=== PATIENT | female | born 1965 | race American Indian/Alaskan Native ===

== ENCOUNTER 2017-04-27 14:59 | Emergency (ER) | payer MEDICAID ==
[2017-04-27 15:30] VITALS: BP 134/86
== END 2017-04-27 16:37 | disposition left against medical advice (07) ==
LOC: ED 14:59
DX: R07.9 Chest pain, unspecified (principal); R06.02 Shortness of breath; R05 Cough; J45.909 Unspecified asthma, uncomplicated; I10 Essential (primary) hypertension; Z72.0 Tobacco use; Z53.21 Procedure and treatment not carried out due to patient leaving prior to being seen by health care provider
CPT/HCPCS: 93005; 93010

== ENCOUNTER 2017-08-06 07:15 | Emergency (ER) | payer OTHER, MEDICAID ==
[2017-08-06 07:26] VITALS: BP 102/64
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
--- NOTE | 2017-08-06 08:43 | XRay Report ---
ROUTINE CHEST, TWO VIEWS: Cough PA and lateral views demonstrate the heart and mediastinal contour to be of normal size and shape. The lungs are clear and fully expanded and the soft tissues and bony structures are normal. No obvious change compared to November 2012. IMPRESSION: Normal study. Right shoulder: Pain. There is a small inferior spur on the humerus head. The shoulder joint appears aligned and the joint spaces preserved. The articular surfaces are smooth. There appears to be an nonunited apophysis at the distal clavicle. No soft tissue findings. Impression: Humerus head spur. AP AND LATERAL CERVICAL SPINE: Neck pain. The vertebral bodies are well mineralized and normal in alignment and vertebral height with well preserved interspace distances. The visualized portions of the posterior elements are normal. IMPRESSION: Normal study.
== END 2017-08-06 09:15 | disposition home or self-care (01) ==
LOC: ED 07:15
DX: J44.1 Chronic obstructive pulmonary disease with (acute) exacerbation (principal); S46.911A Strain of unspecified muscle, fascia and tendon at shoulder and upper arm level, right arm, initial encounter; S16.1XXA Strain of muscle, fascia and tendon at neck level, initial encounter; I10 Essential (primary) hypertension; F17.210 Nicotine dependence, cigarettes, uncomplicated; V89.2XXA Person injured in unspecified motor-vehicle accident, traffic, initial encounter; Y93.89 Activity, other specified; Y92.89 Other specified places as the place of occurrence of the external cause; Y99.8 Other external cause status
CPT/HCPCS: 71020; 72040; 99283

== ENCOUNTER 2022-03-23 14:41 | Emergency (ER) | payer MEDICAID ==
[2022-03-23 16:33] LABS: Basophils # (Auto) 0.1 K/mm3 (0.0-0.1); Basophils % (Auto) 0.7 % (0.0-1.8); Eosinophils % (Auto) 0.2 % (0.0-4.3); Hematocrit 38.3 % (30.3-42.9); Hemoglobin 12.6 gm/dl (10.1-14.3); Lymphocytes # (Auto) 2.2 K/mm3 (1.2-5.4); Lymphocytes % (Auto) 27.9 % (13.4-35.0); Mean Corpuscular HGB Conc 33 % (30-34); Mean Corpuscular Volume 82 fl (79-97); Monocytes # (Auto) 0.4 K/mm3 (0.0-0.8); Monocytes % (Auto) 4.7 % (0.0-7.3); Platelet Count 229 K/mm3 (140-440); Red Blood Count 4.66 M/mm3 (3.65-5.03); Red Cell Distribution Width 16.6 % (13.2-15.2)
[2022-03-23 16:54] LABS: BUN/Creatinine Ratio 9; Blood Urea Nitrogen 7 mg/dL (7-17); Calcium 9.3 mg/dL (8.4-10.2); Hemolysis Index 6
--- NOTE | 2022-03-23 20:36 | Emergency Department Report ---
ED Psych HPI - General Chief Complaint: Psych Stated Complaint: SI Time Seen by Provider: 03/23/22 15:18 Source: patient Mode of arrival: Ambulatory Limitations: No Limitations - History of Present Illness Initial Comments: Patient is a 56-year-old female presenting to ED with complaint of suicidal ideations as well as homicidal ideations. Patient states she began experiencing suicidal ideations yesterday. States she also has thoughts of killing her . She denies any past history of self injury. - Related Data Home Medications Medication Instructions Recorded Confirmed Last Taken Loratadine (Nf) [Claritin] 10 mg PO DAILY 04/09/15 04/09/15 Unknown Zolpidem Tartrate [Ambien] 10 mg PO QHS 04/09/15 04/09/15 1 Day Ago ~04/08/15 Previous Rx's Medication Instructions Recorded Last Taken Type ALBUTEROL NEB's [Proventil 0.083% 2.5 mg IH Q4HR PRN #30 neb 11/30/14 Unknown Rx NEBS] Albuterol Sulfate [Ventolin HFA] 2 puff IH Q4H PRN #1 hfa.aer.ad 08/06/17 Unknown Rx Benzonatate [Tessalon Perles] 100 mg PO Q8HR #21 capsule 08/06/17 Unknown Rx Ibuprofen [Motrin] 800 mg PO Q8HR PRN #20 tablet 08/06/17 Unknown Rx Prednisone [predniSONE 10 mg 10 mg PO .TAPER #1 tab.ds.pk 08/06/17 Unknown Rx (6-Day Pack, 21 Tabs)] Sulfamethoxazole/Trimethoprim 1 each PO BID #20 tablet 08/06/17 Unknown Rx [Bactrim DS TAB] Allergies Allergy/AdvReac Type Severity Reaction Status Date / Time No Known Allergies Allergy Verified 03/23/22 15:35 ED Review of Systems ROS: Stated complaint: SI Other details as noted in HPI Comment: All other systems reviewed and negative Constitutional: denies: chills, fever Respiratory: denies: cough, shortness of breath, wheezing Cardiovascular: denies: chest pain, palpitations Gastrointestinal: denies: abdominal pain, nausea, diarrhea Musculoskeletal: denies: back pain, joint swelling, arthralgia Skin: denies: rash, lesions Neurological: denies: headache, weakness, paresthesias Psychiatric: homicidal thoughts, suicidal thoughts ED Past Medical Hx - Past Medical History Hx Hypertension: Yes Hx Asthma: Yes - Social History Smoking Status: Current Every Day Smoker Substance Use Type: None - Medications Home Medications: Home Medications Medication Instructions Recorded Confirmed Last Taken Type ALBUTEROL NEB's [Proventil 0.083% 2.5 mg IH Q4HR PRN #30 neb 11/30/14 04/09/15 Unknown Rx NEBS] Loratadine (Nf) [Claritin] 10 mg PO DAILY 04/09/15 04/09/15 Unknown History Zolpidem Tartrate [Ambien] 10 mg PO QHS 04/09/15 04/09/15 1 Day Ago History ~04/08/15 Albuterol Sulfate [Ventolin HFA] 2 puff IH Q4H PRN #1 hfa.aer.ad 08/06/17 Unknown Rx Benzonatate [Tessalon Perles] 100 mg PO Q8HR #21 capsule 08/06/17 Unknown Rx Ibuprofen [Motrin] 800 mg PO Q8HR PRN #20 tablet 08/06/17 Unknown Rx Prednisone [predniSONE 10 mg 10 mg PO .TAPER #1 tab.ds.pk 08/06/17 Unknown Rx (6-Day Pack, 21 Tabs)] Sulfamethoxazole/Trimethoprim 1 each PO BID #20 tablet 08/06/17 Unknown Rx [Bactrim DS TAB] ED Physical Exam - General Limitations: No Limitations General appearance: alert, in no apparent distress - Head Head exam: Present: atraumatic, normocephalic - Neck Neck exam: Present: normal inspection - Respiratory Respiratory exam: Present: normal lung sounds bilaterally. Absent: respiratory distress - Cardiovascular Cardiovascular Exam: Present: regular rate, normal rhythm. Absent: systolic murmur, diastolic murmur, rubs, gallop - GI/Abdominal GI/Abdominal exam: Present: soft, normal bowel sounds. Absent: distended, tenderness - Neurological Exam Neurological exam: Present: alert, oriented X3 - Psychiatric Psychiatric exam: Present: homicidal ideation, suicidal ideation - Skin Skin exam: Present: warm, dry, intact, normal color ED Course Vital Signs 03/23/22 14:46 Temperature 98.4 F Pulse Rate 110 H Respiratory 16 Rate Blood Pressure 119/77 [Left] O2 Sat by Pulse 96 Oximetry ED Medical Decision Making - Lab Data Result diagrams: 03/23/22 16:24 03/23/22 16:24 - Medical Decision Making Labs reviewed and are grossly unremarkable. Patient medically cleared. 1013 signed. Patient awaiting evaluation by mental health. Critical care attestation.: If time is entered above; I have spent that time in minutes in the direct care of this critically ill patient, excluding procedure time. ED Disposition Clinical Impression: Suicidal ideation, Homicidal ideation Disposition: 30 STILL A PATIENT Is pt being admited?: No Condition: Stable
--- NOTE | 2022-03-24 11:42 | Consultation ---
History of Present Illness - Reason for Consult Consult date: 03/24/22 Reason for consult: SI/HI - History of Present Psychiatric Illness HPI: Patient is a 56-year-old female presenting to ED with complaint of suicidal ideations as well as homicidal ideations. Patient states she began experiencing suicidal ideations yesterday. States she also has thoughts of killing her . She denies any past history of self injury. The patient was seen today. She is guarded, and seems a little irritable. She says her is stressing her out. The patient also verbalizes using cocaine. 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 The patient says she takes zoloft for bipolar, depression and schizophrenia. She says "sometimes" when asking if she takes it. The patient denies feeling like she wants to hurt herself or others. She denies hallucinations. Nurse note states the patient stated she wanted to kill herself, and granddaughter. Will recommend inpatient treatment to get the patient stabilized on medications. PAST PSYCHIATRIC HISTORY: Diagnoses: Bipolar, schizophrenia Suicide attempts or Self-harm behavior: Denies Prior psychiatric hospitalizations: Yes Substance Abuse history: Cocaine Previous psychiatric medications tried: Zoloft Outpatient treatment: yes PAST MEDICAL HISTORY: none reported Family Psychiatric History: None reported or documented SOCIAL HISTORY Marital Status: Living Arrangements: Lives with Employment Status: Unemployed Access to guns/weapons: Denies Education: 12th grade History of Abuse:Denies Legal History: Denies REVIEW OF SYSTEMS Constitutional: Negative for weight loss ENT: Negative for stridor Respiratory: Negative for cough or hemoptysis All other systems reviewed and are negative MENTAL STATUS EXAMINATION General Appearance and Behavior: Age appropriate, wearing appropriate clothes, cooperative, polite with questioning, good eye contact Cooperation: cooperative, irritable, guarded Psychomotor Behavior: Psychomotor normal Mood: Depressed Affect and affective range: congruent with stated mood Thought Process: Goal directed Thought Content: Reality oriented Speech: Normal volume, Regular rate and rhythm Suicidal Ideation: Denies Homicidal Ideation: Denies Hallucination: Denies Delusions: None elicited Impulse Control: Limited Insight and Judgment: Limited Memory: limited Attention: attentive Orientation: Alert and oriented Diagnoses: Bipolar disorder Treatment Plan [address] 125mg po BID Start Abilify 5mg po daily Start Doxepin 10mg po qhs Sitter: per primary Medical: Per primary Disposition: Recommend acute psychiatric inpatient treatment Will follow. Thanks Case staffed with Dr. Grajeda Medications and Allergies Allergies Allergy/AdvReac Type Severity Reaction Status Date / Time No Known Allergies Allergy Verified 03/23/22 15:35 Home Medications Medication Instructions Recorded Confirmed Last Taken Type ALBUTEROL NEB's [Proventil 0.083% 2.5 mg IH Q4HR PRN #30 neb 11/30/14 04/09/15 Unknown Rx NEBS] Loratadine (Nf) [Claritin] 10 mg PO DAILY 04/09/15 04/09/15 Unknown History Zolpidem Tartrate [Ambien] 10 mg PO QHS 04/09/15 04/09/15 1 Day Ago History ~04/08/15 Albuterol Sulfate [Ventolin HFA] 2 puff IH Q4H PRN #1 hfa.aer.ad 08/06/17 Unk nown Rx Benzonatate [Tessalon Perles] 100 mg PO Q8HR #21 capsule 08/06/17 Unknown Rx Ibuprofen [Motrin] 800 mg PO Q8HR PRN #20 tablet 08/06/17 Unknown Rx Prednisone [predniSONE 10 mg 10 mg PO .TAPER #1 tab.ds.pk 08/06/17 Unknown Rx (6-Day Pack, 21 Tabs)] Sulfamethoxazole/Trimethoprim 1 each PO BID #20 tablet 08/06/17 Unknown Rx [Bactrim DS TAB] Mental Status Exam - Vital signs Last Vital Signs Temp 98.7 F 03/24/22 08:46 Pulse 79 03/24/22 08:46 Resp 15 03/24/22 08:46 BP 121/82 03/24/22 08:46 Pulse Ox 98 03/24/22 08:46 Results Result Diagrams: 03/23/22 16:24 03/23/22 16:24 Abnormal lab results 03/23/22 03/23/22 03/23/22 Range/Units 16:24 16:24 16:24 MCH 27 L (28-32) pg RDW 16.6 H (13.2-15.2) % Salicylates < 0.3 L (2.8-20.0) mg/dL Plasma/Serum Alcohol 0.13 H (0-0.07) % All other labs normal.
--- NOTE | 2022-03-24 12:58 | Event Note ---
Date: 03/24/22 Pt seen today and examined by me. She was also seen by the psychiatry and recommend 1013. She told her bedside nurse that she plan to kill herself and her . She has history of bipolar and schizophrenia. Pt denies any other modifying or associated factors.
[2022-03-24] MEDS: ARIPiprazole 5 MG TAB PO SCH (15:45)
[2022-03-24] MEDS: DIVALPROEX DR 125 MG TAB PO SCH ×2 (15:46→22:32)
[2022-03-24 16:35] LABS: Bilirubin,Urine NEG (Negative); Blood,Urine NEG (Negative); Color,Urine Yellow (Yellow); Protein,Urine <15 mg/dL mg/dL (Negative)
[2022-03-24 16:39] LABS: Amphetamine Screen,Urine Negative; Benzodiazepines Screen,Urine Negative; Cannabinoid Screen,Urine Negative; Methadone Screen,Urine Negative; Opiate Screen,Urine Negative
[2022-03-24 16:41] LABS: Bacteria,Urine 1+ /HPF (Negative); Calcium Oxalate Crystals,Urine 1+; Mucus,Urine 3+ /HPF; Renal Epithelial Cells,Urine <1 /LPF
[2022-03-24 16:52] LABS: Cocaine Screen,Urine Positive
[2022-03-24] MEDS ORDERED: DOXEPIN 10 MG CAP PO SCH (22:00)
--- NOTE | 2022-03-25 09:47 | Progress Note ---
Subjective - Reason for Consult Consult date: 03/25/22 Reason for consult: Bipolar Disorder - Chief Complaint Chief complaint: The patient was seen today. She is calm and cooperative. She is pleasant. She says she has to complete her school work for her finals. Discussed with the patient about her drug use. She says "you don't have to worry about me coming back in here." She denies SI/HI or hallucinations of any kind. She says "I promise you, I'm good. I'm not going to do any of that." She says the patient she shares a room with called her "nig" all night. I also spoke with the patient's spouse, who confirms that she is in school. He also states that he doesn't feel his is a threat to herself or others. He says he wants her home. REVIEW OF SYSTEMS Constitutional: Negative for weight loss ENT: Negative for stridor Respiratory: Negative for cough or hemoptysis All other systems reviewed and are negative MENTAL STATUS EXAMINATION General Appearance and Behavior: Age appropriate, wearing appropriate clothes, cooperative, polite with questioning, good eye contact Cooperation: cooperative, irritable, guarded Psychomotor Behavior: Psychomotor normal Mood: good Affect and affective range: congruent with stated mood Thought Process: Goal directed Thought Content: Reality oriented Speech: Normal volume, Regular rate and rhythm Suicidal Ideation: Denies Homicidal Ideation: Denies Hallucination: Denies Delusions: None elicited Impulse Control: Limited Insight and Judgment: Limited Memory: limited Attention: attentive Orientation: Alert and oriented Diagnoses: Bipolar disorder Treatment Plan d/c [address] 125mg po BID Abilify 5mg po daily Doxepin 10mg po qhs Sitter: per primary Medical: Per primary Disposition: Do not recommend acute psychiatric inpatient treatment. The patient understands that if SI/HI or hallucinations arise she is to seek immediate assistance. The asbestos hazard abatement worker to give all outpatient resources including safety plan and drug rehab Will sign off. Thanks Case staffed with Dr. Grajeda Mental Status Exam - Vital signs Last Vital Signs Temp 98.6 F 03/25/22 08:58 Pulse 77 03/25/22 08:58 Resp 15 03/25/22 08:58 BP 106/67 03/25/22 08:58 Pulse Ox 100 03/25/22 08:58
--- NOTE | 2022-03-25 11:45 | Event Note ---
Date: 03/25/22 Patient has no suicidal or homicidal ideation she has been cleared for psych for discharge
[2022-03-25] MEDS: DIVALPROEX DR 125 MG TAB PO SCH (11:57)
[2022-03-25] MEDS: ARIPiprazole 5 MG TAB PO SCH (11:57)
[2022-03-25 12:42] VITALS: BP 112/55
== END 2022-03-25 12:00 | disposition home or self-care (01) ==
LOC: ED 14:41
DX: R45.851 Suicidal ideations (principal); R45.850 Homicidal ideations; Z20.822 Contact with and (suspected) exposure to COVID-19; F17.200 Nicotine dependence, unspecified, uncomplicated; I10 Essential (primary) hypertension; J45.909 Unspecified asthma, uncomplicated
CPT/HCPCS: 36415; 80048; 80307; 81001; 85025; 87086; 99284; U0003; 80320; G0480